=== PATIENT | male | born 2000 | race Caucasian/White ===

== ENCOUNTER 2022-06-04 15:54 | Emergency (ER) | payer OTHER, SELFPAY ==
[2022-06-04 16:02] VITALS: BP 115/71; PULSE 70; RESP 18; TEMP 36.8; O2SAT 100; BMI 22.2
--- NOTE | 2022-06-04 17:36 | CRLHL7_ITS ---
For Patients: As a result of the Cures Act, medical imaging exams and procedure reports are released immediately into your electronic medical record. You may view this report before your referring provider. If you have questions, please contact your health care provider. Indication: Injury and pain. Technique: Right ankle, 3 views. Comparison: None. Findings: Bones: Alignment is normal. No fractures or bone lesions. Joint spaces: Unremarkable. Soft tissues: Soft tissue swelling, most prominently along the lateral malleolus. Impression: Soft tissue swelling without underlying fracture or dislocation. Dictated by Ramiro Escobedo MD @ 06/04/2022 6:36:14 PM (Electronically Signed)
--- NOTE | 2022-06-04 17:37 | ED_ITS ---
HPI - General Adult General Time Seen by Provider: 17:38 Date Seen: 06/04/22 Chief complaint: Extremity Pain/Injury, Lower Stated complaint: POSSIBLE BROKEN ANKLE - RT LEG Time Seen by Provider: 06/04/22 17:34 Source: patient Mode of arrival: ambulatory History of Present Illness HPI narrative: 22-year-old male [employer] student presents with a 1 day old injury to his right ankle. He is a small stock facer. When he was playing yesterday he rolled his ankle. He does not recall in which direction the injury occurred. He felt a crack in a crunch. Since then he has been walking on it but it has been painful. He has multiple previous minor sprains to his ankle but never a fracture or a significantly disabling injury to his ankle. Related Data Home Medications Medication Instructions Recorded Confirmed No Known Home Medications 06/04/22 06/04/22 Allergies Allergy/AdvReac Type Severity Reaction Status Date / Time No Known Drug Allergies Allergy Verified 06/04/22 16:04 [facility] PFS Social History Smoking Status: Never smoker Do you use any of these nicotine containing products: None Second hand tobacco smoke exposure: No How often do you have a drink containing alcohol: 2-3 times a week How many standard drinks containing alcohol do you have on a typical day: 3 or 4 How often do you have six or more drinks on one occasion: Monthly AUDIT-C Alcohol total score: 6 Non-prescribed substance use: denies use Exam Narrative: Exam Narrative: He is alert and appears in no distress. Examination shows the has moderate bruising on the lateral aspect of his ankle around and below the right lateral malleolus. Moderate swelling is present there as well. Palpation over the proximal fibula and tibia are nontender. He has minimal tenderness around the lateral malleolus and none around the medial malleolus posterior ankle and Achilles are nontender. Fifth metatarsal is nontender midfoot is nontender. Left ankle is examined appears normal as well. Const: Vital Signs, click to edit/add: Vital Signs - 24 hr 06/04/22 16:02 06/04/22 17:48 Temperature 98.3 F Pulse Rate [Right Pulse Oximeter] 70 67 Respiratory Rate 18 20 Blood Pressure [Ri ght Upper Arm] 115/71 113/68 Pulse Oximetry 100 100 Oxygen Delivery Me thod Room Air Room Air Documenting provider has reviewed patient's vital signs: yes Course Vital Signs Vital signs: Initial Vital Signs Temperature 98.3 F 06/04/22 16:02 Temperature Source Temporal Artery Scan 06/04/22 16:02 Pulse Rate 70 06/04/22 16:02 Respiratory Rate 18 06/04/22 16:02 Blood Pressure 115/71 06/04/22 16:02 Blood Pressure Mean 85 06/04/22 16:02 Blood Pressure Position Sitting 06/04/22 16:02 Pulse Oximetry 100 06/04/22 16:02 Oxygen Delivery Method 06/04/22 16:02 Vital Signs Temperature 98.3 F 06/04/22 16:02 Pulse Rate 70 06/04/22 16:02 Respiratory Rate 18 06/04/22 16:02 Blood Pressure 115/71 06/04/22 16:02 Pulse Oximetry 100 06/04/22 16:02 Oxygen Delivery Method 06/04/22 16:02 Temperature 98.3 F 06/04/22 16:02 Pulse Rate 67 06/04/22 17:48 Respiratory Rate 20 06/04/22 17:48 Blood Pressure 113/68 06/04/22 17:48 Pulse Oximetry 100 06/04/22 17:48 Oxygen Delivery Method 06/04/22 17:48 Medical Decision Making Imaging Data Ankle radiograph: My impression: Intact mortise. No fracture Discharge Plan Discharge Clinical Impression: Sprain of lateral ligament of ankle joint Patient Disposition: Home, Self-Care Additional Instructions: Call for an appointment with sports medicine physician at [facility] clinic next week. Apply ice as needed. Elevate your ankle to reduce swelling. Activity Level: Use Crutches and Other Activity Detail: Wear ankle brace for support. Weight bearing as tolerated. Use crutches as needed Prescriptions: No Action No Known Home Medications Follow Up/Referrals: Provider,Not a Local [Primary Care Provider] - Stand Alone Forms: MyHealth Info Instructions
[2022-06-04 17:48] VITALS: BP 113/68; PULSE 67; RESP 20; O2SAT 100
== END 2022-06-04 18:30 | disposition home or self-care (01) ==
PROVIDERS: Emergency Provider Family Medicine
DX: S93.491A Sprain of other ligament of right ankle, initial encounter (principal); X50.1XXA Overexertion from prolonged static or awkward postures, initial encounter; Y93.66 Activity, soccer; Y92.322 Soccer field as the place of occurrence of the external cause; Y99.8 Other external cause status
CPT/HCPCS: 73610; 99282; 99283